=== PATIENT | male | born 1970 | race African-American/Black ===

== ENCOUNTER 2016-09-26 10:51 | Emergency (ER) | payer OTHER ==
--- NOTE | ~2016-09-26 | CT2 ---
[facility] A Service of [facility] & [facility] RADIOLOGY TEXT RESULTS PATIENT: ROBIN ZHANG LOCATION: CFTX : 74 UNIT #: [id number] AGE: [address]: Louann Wayne APRN SEX: M ORDER DR: [id number] [facility] [address] [place], [place] [address] [id number] E MR#: [id number] Acc #: [id number] NAME: ROBIN ZHANG : 1970 SEX: M STUDY DATE/TIME: 09/26/2016 11:43 UNIT: CFTX ROOM: STUDY DESCRIPTION: CT Abd and Pelv W Cont Attending Physician: Louann Wayne A.P.R.N. Ordering Physician: Ed Doctor [id number] [facility] MEDICAL IMAGING REPORT This report is preliminary unless electronic signature is present EXAM CT abdomen and pelvis with contrast, 09/26/2016, 1143 hours. CLINICAL HISTORY 46-year-old man with a 2-month history of left-sided abdominal pain and groin pain. Prior history of hernia repair. No acute injury. TECHNIQUE Dynamic helical CT images were obtained from the lung bases through the pubic symphysis with intravenous contrast only. Sagittal and coronal reconstructions were performed. Contrast was Isovue-370 100 mL IV. Total exam DLP 881 mGy-cm. This CT exam was performed with one or more of the following radiation dose reduction techniques: automatic exposure control, adjustment of mA and/or kV according to patient size, and iterative reconstruction. FINDINGS Images through the lung bases are clear. There are no effusions. Postcontrast images through the abdomen demonstrate a normal appearance to the liver, spleen, pancreas, gallbladder and bile ducts. The adrenal glands are normal. The kidneys enhance normally with no mass, stone or dilatation. The abdominal aorta is normal in caliber. The stomach is contracted and unopacified but appears normal. There is no small bowel distension or small bowel wall thickening. The appendix is normal. There is no colonic distension or colonic wall thickening. CT pelvis demonstrates an enlarged heterogeneous appearance to the prostate measuring 6.3 cm transverse x 4.8 cm AP x 5.8 cm cephalocaudad. [facility] A Service of [facility] & [facility] RADIOLOGY TEXT RESULTS PATIENT: ROBIN ZHANG LOCATION: JOSETX : 74 UNIT #: [id number] AGE: [address]: Louann Wayne [employer] SEX: M ORDER DR: There is a low-density area in the left posterior aspect of the prostate which is fairly well defined measuring 2 cm. This is of uncertain clinical significance. There is prominence of the vessels lateral to the prostate of uncertain clinical significance. IMPRESSION 1. Normal CT abdomen. The kidneys and bowel are normal. There is no adenopathy or ascites. 2. There is an enlarged heterogeneous prostate measuring up to 6.3 x 4.8 x 5.8 cm with a 2 cm focal low-density area in the left posterolateral aspect. This is of uncertain clinical significance. Prostate malignancy or prostatitis are included in the differential. Suggest correlation with PSA. 3. There is nonspecific prominence of vessels to the left and right of the prostate which could be due to hyperemia or venous collaterals. These are incompletely opacified on this exam. STAT * RESULT Dictated by... Viviana Fox M.D. THIS IS AN ELECTRONICALLY VERIFIED REPORT Viviana Fox M.D. at 09/29/2016 9:18 AM FRITZ/jensen TD: 09/26/2016 12:06 JOB #: [id number] MEDICAL IMAGING REPORT COPY
[2016-09-26 11:09] LABS: BASOPHIL# 0.1 X10e3 (0-0.3); EOSINOPHIL# 0.2 X10e3 (0-0.7); EOSINOPHIL% 3.6 % (0.0-7.0); HEMATOCRIT 46.6 % (38.0-50.0); HEMOGLOBIN 15.4 gm/dL (13.0-16.0); LYMPHOCYTE# 1.6 X10e3 (1.0-3.5); MEAN CELL VOLUME 95.7 FL (83-96); MEAN CORPUSCULAR HEMOGLOBIN 31.7 PG (28-34); MEAN CORPUSCULAR HGB CONC 33.1 g/dL (30-36); MEAN PLATELET VOLUME 9.2 FL (6.5-11.5); MONOCYTE# 0.3 X10e3 (0-1.0); MONOCYTE% 5.3 % (3.0-12.0); NEUTROPHIL# 3.4 X10e3 (1.5-7.1); NEUTROPHIL% 61.1 % (40-75); PLATELET COUNT 168 X10e3 (140-420); RED BLOOD COUNT 4.87 X10e (3.90-5.60); RED CELL DISTRIBUTION WIDTH 13.8 % (11.0-15.5); WHITE BLOOD COUNT 5.6 X10e3 (4.0-10.5)
[2016-09-26 11:25] LABS: ALKALINE PHOSPHATASE 43 U/L (32-92); ALT (SGPT) 15 U/L (10-40); AST (SGOT) 23 U/L (10-42); BILIRUBIN,TOTAL 0.4 mg/dL (0.2-2.0); BLOOD UREA NITROGEN 7 mg/dL (9-23); BUN/CREATININE RATIO 6.36; CALCIUM SERUM 9.4 mg/dL (8.4-10.2); CARBON DIOXIDE 27 mmol/L (22-31); CHLORIDE 104 mmol/L (100-111); CREATININE SERUM 1.1 mg/dL (0.6-1.4); GLOM FILT RATE Estimated ABOVE60 mL/min (>60); GLUCOSE FASTING 88 mg/dL (70-110); POTASSIUM 3.9 mmol/L (3.5-5.1); PROTEIN TOTAL SERUM 6.8 g/dL (6.0-8.3); SODIUM 138 mmol/L (135-145)
[2016-09-26 11:30] LABS: URINE SOURCE CLEAN CATCH
[2016-09-26 11:32] LABS: DIFF IND NO
[2016-09-26 11:36] LABS: URINE APPEARANCE CLEAR; URINE BILIRUBIN NEG (NEG); URINE BLOOD NEG (NEG); URINE COLOR YELLOW; URINE GLUCOSE NEG (NEG); URINE KETONE NEG (NEG); URINE LEUKOCYTE ESTERASE TRACE (NEG); URINE NITRATE NEG (NEG); URINE PH 7.5 (5-8); URINE PROTEIN NEG (NEG); URINE SPECIFIC GRAVITY 1.013 (1.003-1.035)
[2016-09-26 11:38] LABS: URBCS1 AUWI 0-2 /[HPF] (0-2); URINE BACTERIA AUWI NEG (NEGATIVE); URINE SQUAMOUS EPITHELIAL CELL NONE SEEN /[HPF]
[2016-09-26 11:40] LABS: CULTURE INDICATED? NO
== END 2016-09-26 14:10 | disposition home or self-care (01) ==
LOC: CFTX 10:51
PROVIDERS: Nurse Practitioner
DX: N40.0 Benign prostatic hyperplasia without lower urinary tract symptoms (principal); Z98.890 Other specified postprocedural states; F17.210 Nicotine dependence, cigarettes, uncomplicated
CPT/HCPCS: 36415; 74177; 80053; 81003; 85025; 99284; G0103; Q9967